=== PATIENT | male | born 1985 ===

== ENCOUNTER 2025-10-30 09:00 | Day surgery (SDC) | payer OTHER ==
[~2025-10-30 09:00] MED LIST: METRONIDAZOLE/SODIUM CHLORIDE 500 MG/100 ML PIGGYBACK IV SCH; NEXIUM 24HR20 MG PO; PEPCID AC10 MG PO; levoFLOXacin IN DEXTROSE 5 % 5 MG/ML PIGGYBAG IV SCH
[2025-10-30] MEDS ORDERED: METRONIDAZOLE/SODIUM CHLORIDE 500 MG/100 ML PIGGYBACK IV ONE (09:19)
== END 2025-10-30 16:50 | disposition home or self-care (01) ==
LOC: CIR.AMB 09:00
PROVIDERS: ATTEND Colon & Rectal Surgery
DX: K81.1 Chronic cholecystitis (principal); Z88.0 Allergy status to penicillin; Z88.6 Allergy status to analgesic agent